=== PATIENT | female | born 2000 | race Caucasian/White ===

== ENCOUNTER 2020-08-08 14:40 | Observation (INO) | payer OTHER ==
[2020-08-08 16:53] LABS: #Eosinphils 0.1 thou/uL (0.0-0.7); #Lymphocytes 3.1 thou/uL (1.20-3.40); #Monocytes 1.1 thou/uL (0.11-0.59); #Neutrophils 4.4 thou/uL (1.40-6.50); %Basophils 0.5 % (0.0-1.0); %Eosinophils 0.6 % (0.0-10.0); %Lymphocytes 35.9 % (28.0-48.0); %Monocytes 12.1 % (0.0-4.0); %Neutrophils 50.9 % (31.0-61.0); Hemoglobin 12.2 g/dL (12.0-16.0); Mean Corpuscular HGB CONC 33.6 g/dL (32.0-36.0); Mean Corpuscular Hemoglobin 28.9 pg (25.0-35.0); Mean Corpuscular Volume 86.1 fL (78.0-98.0); Mean Platelet Volume 7.4 fL (7.4-10.4); Platelet Count 229 thou/uL (130-400); RBC Distribution Width 12.2 % (11.5-14.5); Red Blood Cell (RBC) Count 4.21 mill/uL (4.00-5.20); White Blood Cell (WBC) Count 8.7 thou/uL (4.8-10.8)
[2020-08-08 17:12] LABS: ALT (SGPT) 24 U/L (8-55); AST (SGOT) 21 U/L (5-30); Albumin 3.8 g/dL (3.5-5.0); Alkaline Phosphatase 64 U/L (40-100); Anion Gap 13 mmol/L (10-20); BUN (Urea Nitrogen) 11 mg/dL (8.4-21.0); Bilirubin, Total 0.6 mg/dL (0.2-1.2); Calc. Creatinine Clearance 0 mL/min (70-130); Calcium 8.9 mg/dL (7.8-10.44); Carbon Dioxide 24 mmol/L (22-29); Chloride 106 mmol/L (98-107); Globulin 3.1 g/dL (2.4-3.5); Glucose 100 mg/dL (70-105); Protein, Total 6.9 g/dL (6.0-8.3); Sodium 139 mmol/L (136-145)
[2020-08-08 17:57] LABS: BHCG - Serum Negative (NEGATIVE); Pregs Control Background? CLEAR/WHITE (CLR/WHITE); Pregs Control Bar Appear? YES (CONTROL BAR)
[2020-08-08 18:00] LABS: SARS-CoV-2 NAA Rapid Test Not Detected (NotDetected)
[2020-08-08] MEDS ORDERED: Fentanyl 100 MCG/2 ML VIAL ONE (18:14)
[2020-08-08] MEDS ORDERED: Midazolam HCl 2 mg/2 ml Vial ONE (18:14)
[2020-08-08] MEDS ORDERED: HYDROmorphone 0.5 MG/0.5 ML SYRINGE ONE (18:14)
[2020-08-08] MEDS ORDERED: Lidocaine 2% Jelly 5 ML TUBE ONE (18:15)
[2020-08-08] MEDS ORDERED: Lidocaine 1% PF 5 ML VIAL ONE (18:38)
[2020-08-08] MEDS ORDERED: Rocuronium Bromide 10 MG/ML (10ML VIAL) ONE (18:38)
[2020-08-08] MEDS ORDERED: PROPOFOL 200 MG/20 ML VIAL ONE (18:38)
[2020-08-08] MEDS ORDERED: Dexamethasone 20 MG/5 ML VIAL ONE (18:38)
[2020-08-08] MEDS ORDERED: Glycopyrrolate 0.2 MG/ML 5 ML SYRINGE ONE (18:38)
[2020-08-08] MEDS ORDERED: Succinylcholine 200 MG/10 ml SYRINGE FS ONE (18:38)
[2020-08-08] MEDS ORDERED: Ondansetron PF 4 MG/2 ML Vial ONE (18:38)
[2020-08-08] MEDS ORDERED: Ondansetron HCl/PF 4 MG/2 ML Vial IVP PRN (19:27)
[2020-08-08] MEDS ORDERED: HYDROmorphone 2 MG/ML VIAL SLOW IVP PRN (19:27)
[2020-08-08] MEDS ORDERED: Promethazine HCl 25 MG/ML VIAL IM PRN (19:27)
[2020-08-08] MEDS ORDERED: Promethazine HCl 25 MG/ML VIAL IVPB PRN (19:27)
[2020-08-08 23:06] VITALS: BMI 21.6
[2020-08-08] MEDS ORDERED: Ondansetron PF 4 MG/2 ML Vial IVP PRN (23:09)
[2020-08-08] MEDS ORDERED: HYDROcodone/Acetaminophen 5/325 mg Tablet PO PRN (23:10)
[2020-08-08] MEDS ORDERED: Morphine 2 MG/ML VIAL SLOW IVP PRN (23:10)
[2020-08-08] MEDS ORDERED: Lactated Ringer's 1,000 ML IV SCH (23:15)
[2020-08-09 07:46] VITALS: BP 108/58; TEMP 97.5
== END 2020-08-09 09:40 | disposition home or self-care (01) ==
LOC: ERS 14:40 → SDC/OP 16:55 → SURG A 19:34
PROVIDERS: ADMIT Student in an Organized Health Care Education/Training Program; ATTEND Student in an Organized Health Care Education/Training Program
PROC: 0W33XZZ Control Bleeding in Oral Cavity and Throat, External Approach (ICD-10-PCS; principal; 2020-08-08)
DX: J95.831 Postprocedural hemorrhage of a respiratory system organ or structure following other procedure (principal)
CPT/HCPCS: 36415; 80053; 84703; 85025; 99285; G0378; J1100; J1170; J2250; J2405; J2704; J3010; U0002; U0005